=== PATIENT | female | born 1965 | race Two or more races ===

== ENCOUNTER 2022-02-18 08:49 | Outpatient (CLI) | payer OTHER | END 2022-02-18 08:52 | disposition home or self-care (01) | LOC: RX STUDY 08:49 | PROVIDERS: ATTEND Surgery | DX: K57.20 Diverticulitis of large intestine with perforation and abscess without bleeding (principal); Z93.3 Colostomy status; R10.9 Unspecified abdominal pain ==

== ENCOUNTER 2022-04-01 09:30 | Inpatient (IN) | payer OTHER ==
[~2022-04-01] VITALS: Ht 175.3 cm; Wt 65.8 kg
[2022-04-01] MEDS ORDERED: LUMIGAN2.5 M1 OP (11:06)
[2022-04-01] MEDS ORDERED: COMBIGAN EYE DRO5 ML OP (11:06)
[2022-04-07] MEDS ORDERED: BRIMONIDINE-TIMO5 ML (10:37)
[2022-04-11] MEDS ORDERED: ACETAMINOPHEN500 M2 PO (14:14)
[2022-04-11] MEDS ORDERED: NEURONTIN300 MG PO (14:14)
== END 2022-04-11 22:27 | disposition home or self-care (01) | DRG 329 ==
LOC: SURH 04-04 06:34 → O/R 04-04 06:34 → SURH 04-04 07:00
PROVIDERS: ADMIT Surgery; ATTEND Surgery
PROC: 0DBP4ZZ Excision of Rectum, Percutaneous Endoscopic Approach (ICD-10-PCS; 2022-04-04)
PROC: 0DQE4ZZ Repair Large Intestine, Percutaneous Endoscopic Approach (ICD-10-PCS; 2022-04-04)
PROC: 0DN84ZZ Release Small Intestine, Percutaneous Endoscopic Approach (ICD-10-PCS; 2022-04-04)
PROC: 0DQ84ZZ Repair Small Intestine, Percutaneous Endoscopic Approach (ICD-10-PCS; 2022-04-04)
PROC: 0DB84ZZ Excision of Small Intestine, Percutaneous Endoscopic Approach (ICD-10-PCS; 2022-04-04)
PROC: 0DJD8ZZ Inspection of Lower Intestinal Tract, Via Natural or Artificial Opening Endoscopic (ICD-10-PCS; 2022-04-04)
PROC: 0DTN4ZZ Resection of Sigmoid Colon, Percutaneous Endoscopic Approach (ICD-10-PCS; principal; 2022-04-04 07:00)
DX: K57.20 Diverticulitis of large intestine with perforation and abscess without bleeding (principal); K65.8 Other peritonitis; K91.71 Accidental puncture and laceration of a digestive system organ or structure during a digestive system procedure; R10.9 Unspecified abdominal pain; K64.8 Other hemorrhoids; K62.89 Other specified diseases of anus and rectum; K66.0 Peritoneal adhesions (postprocedural) (postinfection); Z43.3 Encounter for attention to colostomy